=== PATIENT | male | born 2000 | race Caucasian/White ===

== ENCOUNTER 2023-09-26 21:27 | Emergency (ER) | payer OTHER, SELFPAY ==
[2023-09-26 21:30] VITALS: BP 146/82
[2023-09-26 22:16] VITALS: BMI 27.5
--- NOTE | 2023-09-26 22:25 | ED.GENMED ---
History of Present Illness
General
Chief Complaint: Abdominal Pain
Source: patient
Exam Limitations: none
Time Seen by Provider: 09/26/23 21:58
History of Present Illness
History of Present Illness:
This is a 23 year old male that comes in with c/o upper abd pain. States that it is high up under his ribs. States that he is nauseated and that he feels that if he vomits it would make him feel better. States that this has been going on for 2
weeks. States that he went to and he was told to come to the ER. States that he went to work and after lunch he has felt sick all day. Denies any fever, chills, chest pain. Vomiting, diarrhea, headache, dizziness, urinary burning.
Past History
Past History
ED Past Medical History: Other (Concussion)
ED Past Surgical History: Other (Rhinoplasty)
Social History
Tobacco: Non-smoker
Alcohol: Occasional
Personal: Single
Living: alone
Review of Systems
Review of Systems
All Other Systems: ROS reviewed and negative except as documented in HPI and ROS
Constitutional: Reports no symptoms; Denies fever or chills
EENT: Reports no symptoms
Respiratory: Reports no symptoms; Denies cough or trouble breathing
Cardiac: Reports no symptoms; Denies chest pain
ABD/GI: Reports abdominal pain (Upper abd) and nausea; Denies vomiting or diarrhea
: Reports no symptoms; Denies dysuria, frequency or urgency
Musculoskeletal: Reports no symptoms
Skin: Reports no symptoms
Neurological: Reports no symptoms; Denies dizzy or headache
Psychiatric: Reports no symptoms
Phy Exam
General Physical Exam
General Presentation: no apparent distress
General age: appears stated age
General Skin: warm and dry
General Habitus: normal
General Mental: alert
General Hydration: appears well hydrated
ENT Exam
ENT Exam: TM's normal, pharynx normal and neck supple
Eye Exam
Eye Exam: EOMI
Cardiovascular Exam
Cardiovascular Exam: regular rate/rhythm, no edema, no murmur and normal peripheral pulses
Pulmonary Exam
Pulmonary Exam: lungs clear, no respiratory distress, no rales, chest non tender, no crackles, no rhonchi, no wheezing and no cough
Gastrointestinal Exam
Gastrointestinal Exam: normal bowel sounds, soft, no organomegaly, no pulsatile mass, non distended and tender (Epigastric area with palpation)
Musculoskeletal Exam
Musculoskeletal Exam: full ROM and no edema
Skin Exam
Skin Exam: normal color, warm/dry, no rash and no petechia
Psychiatric Exam
Psychiatric Exam: normal mood/affect
Course
Orders/Labs/Results
Orders:
Orders
09/26/23 22:17
CMP [Comprehensive Metabolic Panel] Urgent
Complete Blood Count/With Diff Urgent
Lipase Urgent
09/26/23 22:25
0.9% Sodium Chloride 500 ml [Nss] 500 ml IV BOLUS
Ondansetron Injectable [Zofran] 4 mg .ROUTE .STK-MED ONE
Ondansetron Injectable [Zofran] 4 mg IV NOW STA
Pantoprazole [Protonix IV] 40 mg .ROUTE .STK-MED ONE
Pantoprazole [Protonix IV] 40 mg IV NOW STA
Sterile Water [Sterile Water For Injection] 10 ml .ROUTE .STK-MED ONE
Sucralfate Suspension [Carafate Suspension] 1 gm PO NOW STA
Abnormal Lab Results
09/26/23
22:17
RBC 4.57 L 10^6/uL
(4.70-6.10)
MCH 32.6 H pg
(27.0-31.0)
Abs Immat Gran (auto) 0.1 H 10^3/uL
(0-0.05)
Absolute Monos (auto) 0.8 H 10^3/uL
(0.1-0.6)
Immature Gran % 0.6 H %
(0-0.5)
Lymphocytes % 16.4 L %
(20.5-51.1)
Monocytes % 9.5 H %
(1.7-9.3)
Calcium 10.6 H mg/dl
(8.4-10.2)
ALT 52 H U/L
(0-50)
09/26/23 22:17
09/26/23 22:17
Calcium very slightly elevated. ALT very slightly elevated. Lipase normal at 71
Vital Signs
Initial and Last Documented VS:
Initial Vital Signs
Temp Pulse Resp BP Pulse Ox
98.9 F 64 22 146/82 98
09/26/23 21:30 09/26/23 21:30 09/26/23 21:30 09/26/23 21:30 09/26/23 21:30
Last Documented Vital Signs
Temp Pulse Resp BP Pulse Ox
98.2 F 64 22 135/77 98
09/26/23 22:43 09/26/23 21:30 09/26/23 21:30 09/26/23 23:00 09/26/23 21:30
MDM/Problems Addressed
Differential Diagnosis Includes:
Gastritis,
MDM/Problems Addressed:
This is a 23 year old male that comes in with c/o upper abd pain. States that this has been going on for 2 weeks. States that he is nauseated and feels like if he vomited he would feel better.
Will get labs and medicate and recheck.
Back into see patent. Explained that his blood work is normal but there was very slight elevation of the ALT. Patient states that he does feel better. Explained that this is most likely Gastritis. Patient to stay off Caffeine. Will place on
Carafate, Protonix and Zofran. Patient to follow up with the family doctor and if he feels he is not getting any better the GI specialist. Patient to return with any concerns.
Chronic conditions affecting care:
NA
Acute Exacerbation and/or Progression of Chronic Illness:
NA
*Pulse Oximetry
Patient hypoxic: no
*EKG
Interpreted by ED Provider?: NA
Rate: EKG- N/A
*Ethical Hacker Interpretation
Rate: Ethical Hacker- N/A
*Critical Care Note
Total Time (30-74mins, 75-104mins- exclusive of procedures): Not Applicable
ED Attending Note
-
Portions of this chart may have been created with voice recognition software.� Occasional wrong word or��sound alike� substitutions may have occurred due to the inherent limitations of voice recognition software.
Discharge Plan
Departure
Patient Disposition: Home (Routine Discharge)
Date of Disposition: 09/26/23
Time of Disposition: 23:40
Patient with high blood pressure during this ER visit?: Yes
Condition: Good
Covid-19: Not Applicable
Discharge Problem:
Gastritis
Instructions: Gastritis (DC), BLOOD PRESSURE
Prescriptions:
New
sucralfate [Carafate] 1 gram tablet
1 g PO ACHS Qty: 40 0RF
Rx Instructions:
Dissolve in 2tsp water. 30min-1hour before each meal and HS
pantoprazole [Protonix] 40 mg tablet,delayed release (DR/EC)
40 mg PO DAILY Qty: 30 0RF
ondansetron 4 mg tablet,disintegrating
4 mg PO Q8H PRN (Reason: nausea and vomiting) Qty: 7 0RF
Referrals:
Ulysses Madrid DO [Family Provider] - Call in 1-3 days for appt
Activity Restrictions/Additional Instructions:
As discussed, your liver enzyme is very slightly elevated. Otherwise your blood work is normal. This is most likely a Gastritis. Please stay away form any caffeine as this is irritating to the stomach lining. You have been given 3 prescription and
they have been sent to your Pharmacy. Please take as directed. Follow up with the family doctor. if you would continue with any discomfort you will need to see a Gastrointestinal specialist for further evaluation. IF YOU HAVE INCREASED OR CHANGING
PAIN, OR YOU HAVE ANY OTHER CONCERNS PLEASE RETURN TO THE EMERGENCY ROOM.
Interventions
Interventions:
*Risk Screen - Suicide Last Done: 09/26/23 21:30
*General Assessment Last Done: 09/26/23 22:14
*Neglect/Abuse Screening Last Done: 09/26/23 21:30
*ED COVID-19 Vaccine History Last Done: 09/26/23 22:14
[facility] Assessment Last Done: 09/26/23 22:42
Discharge Date and Time
Print Language: SLOVAK
[2023-09-26 22:30] LABS: % Basophils 0.4 % (0-2); % Eosinophils 0.1 % (0-6); % Immature Granulocytes 0.6 % (0-0.5); % Lymphocytes 16.4 % (20.5-51.1); % Monocytes 9.5 % (1.7-9.3); Absolute Immature Granulocytes 0.1 10^3/uL (0-0.05); Absolute Lymphocytes 1.4 10^3/uL (1.2-3.4); Absolute Monocytes 0.8 10^3/uL (0.1-0.6); Absolute Neutrophils 6.2 10^3/uL (1.4-6.5); Hematocrit 41.1 % (39.0-52.0); Hemoglobin 14.9 g/dL (13.0-18.0); Mean Corp Hgb Conc. 36.3 g/dL (33.0-37.0); Mean Corpuscular Hgb 32.6 pg (27.0-31.0); Mean Corpuscular Volume 89.9 fL (80.0-94.0); Mean Platelet Volume 10.1 fL (7.4-10.4); Nucleated Red Blood Cells % 0 % (-); Platelet Count 250 10^3/uL (130-400); Red Blood Cell Count 4.57 10^6/uL (4.70-6.10); Red Cell Dist. Width 12.7 % (11.5-14.5); White Blood Cell Count 8.4 10^3/uL (4.8-10.8)
[2023-09-26] MEDS: NSS 500 IV (22:34)
[2023-09-26] MEDS: CARAFATE SUSPENSION 1 GM PO (22:35)
[2023-09-26] MEDS: ZOFRAN 4 MG IV (22:36)
[2023-09-26] MEDS: PROTONIX IV 40 MG IV (22:36)
[2023-09-26 22:41] VITALS: BP 134/78
[2023-09-26 23:00] VITALS: BP 135/77
[2023-09-26 23:02] LABS: ALT (SGPT) 52 U/L (0-50); AST (SGOT) 39 U/L (17-59); Alkaline Phosphatase 82 U/L (38-126); Blood Urea Nitrogen 13 mg/dl (9-20); Calcium 10.6 mg/dl (8.4-10.2); Carbon Dioxide 25 mmol/L (22-30); Chloride 104 mmol/L (98-107); Estimated Creatinine Clearance > 125 ml/min; Glucose 99 mg/dl (70-99); Potassium 4.1 mmol/L (3.5-5.1); Sodium 138 mmol/L (135-145); Total Bilirubin 0.6 mg/dl (0.2-1.3); Total Protein 7.7 g/dl (6.3-8.2); eGFR > 60.00
[2023-09-26 23:18] LABS: Lipase 71 U/L (23-300)
== END 2023-09-27 00:04 | disposition home or self-care (01) ==
LOC: EMR 21:27
PROVIDERS: Student in an Organized Health Care Education/Training Program; EMERGENCY PHYSICIAN Emergency Medicine; FAMILY PHYSICIAN Pediatrics
DX: K29.00 Acute gastritis without bleeding (principal); R03.0 Elevated blood-pressure reading, without diagnosis of hypertension; Z87.820 Personal history of traumatic brain injury
CPT/HCPCS: 99284; 96374; 96375; 96361; 80053; 83690; 85025

== ENCOUNTER 2024-08-14 06:22 | Day surgery (SDC) | payer OTHER, SELFPAY | END 2024-08-14 15:24 | disposition home or self-care (01) | LOC: GI 06:22 | PROVIDERS: ATTENDING PHYSICIAN Student in an Organized Health Care Education/Training Program | DX: Z12.11 Encounter for screening for malignant neoplasm of colon (principal); R10.13 Epigastric pain; K20.80 Other esophagitis without bleeding; K22.89 Other specified disease of esophagus; K63.5 Polyp of colon; K62.1 Rectal polyp; K22.10 Ulcer of esophagus without bleeding; Z83.719 Family history of colon polyps, unspecified | CPT/HCPCS: 45385; 43239; 88305; 88342 ==

== ENCOUNTER 2024-11-12 06:21 | Day surgery (SDC) | payer OTHER, SELFPAY | END 2024-11-12 13:33 | disposition home or self-care (01) | LOC: GI 06:21 | PROVIDERS: ATTENDING PHYSICIAN Student in an Organized Health Care Education/Training Program | DX: K21.00 Gastro-esophageal reflux disease with esophagitis, without bleeding (principal); K22.89 Other specified disease of esophagus; K22.70 Barrett's esophagus without dysplasia | CPT/HCPCS: 43239; 88305 ==